=== PATIENT | male | born 2000 | race Caucasian/White ===

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

== ENCOUNTER 2022-09-02 20:10 | Inpatient (IN) | payer MEDICAID, OTHER ==
--- NOTE | 2022-09-02 21:11 | ED ---
Psych HPI - General Chief Complaint: Psychiatric Symptoms Stated Complaint: Suicidal Time Seen by Provider: 09/02/22 20:53 Source: patient, RN notes reviewed Mode of arrival: ambulatory - History of Present Illness Initial Comments: Patient is a 22-year-old male presenting to the emergency room for depressed mood with suicidal thoughts. He reports that he has had significant depression since his grandfather in March of last year with worsening low mood recently. He denies any specific details to suicidal plan but does report he has considered jumping off "something." He has never been evaluated from a psychiatric standpoint in the past regarding depression and is not prescribed any medication for mental health at this time. He does admit to smoking THC regularly. He denies any other complaints not directly related to low mood including any chest pain, shortness breath, abdominal pain, nausea, vomiting, fevers or chills. He has no significant past medical history. - Related Data Home Medications Medication Instructions Recorded Confirmed No Known Home Medications 09/02/22 09/03/22 Allergies Allergy/AdvReac Type Severity Reaction Status Date / Time No Known Allergies Allergy Verified 09/03/22 02:19 Review of Systems ROS Statement: Those systems with pertinent positive or pertinent negative responses have been documented in the HPI. ROS Other: All systems not noted in ROS Statement are negative. Past Medical History Past Medical History: Asthma, Musculoskeletal Disorder Additional Past Medical History / Comment(s): last Tuesday injury to right 4th & 5th fingers-currently splinted History of Any Multi-Drug Resistant Organisms: None Reported Past Surgical History: Appendectomy Past Anesthesia/Blood Transfusion Reactions: No Reported Reaction Past Psychological History: ADD/ADHD Smoking Status: Current every day smoker Past Alcohol Use History: Occasional Past Drug Use History: Marijuana - Past Family History Mother Additional Family Medical History / Comment(s): NONE Father Additional Family Medical History / Comment(s): NONE General Exam - General Exam Comments Initial Comments: GENERAL: No acute distress, well developed, well nourished. HEENT: Normocephalic, atraumatic. Pupils equal, round, reactive to light. Moist mucous membranes. LUNGS: No respiratory distress. Clear to auscultation, no adventitious sounds, no use of accessory muscles. HEART: Regular rate and rhythm without murmur, rub, or gallop. ABDOMEN: Normal bowel sounds. Soft, non-tender, non-distended. BACK: Normal inspection. EXTREMITIES: No edema. No tenderness. Moves all extremities. NEUROLOGIC: Alert & oriented x 3. CN II-XII grossly intact. PSYCHIATRIC: Flat affect and behavior. DERMATOLOGIC: Visualized skin intact, without rashes or lesions noted. Limitations: no limitations Course Vital Signs 09/02/22 20:44 Temperature 98.3 F Pulse Rate 71 Respiratory 16 Rate Blood Pressure 134/76 O2 Sat by Pulse 98 Oximetry Medical Decision Making - Medical Decision Making Was pt. sent in by a medical professional or institution (, PA, DIGGING MACHINE OPERATOR, urgent care, hospital, or prison...) When possible be specific @ -No Did you speak to anyone other than the patient for history (EMS, parent, family, police, friend...)? What history was obtained from this source @ -Yes, mother at bedside obtain family history regarding depression/mental health. Did you review nursing and triage notes (agree or disagree)? Why? @ -I reviewed and agree with nursing and triage notes Were old charts reviewed (outside hosp., previous admission, EMS record, old EKG, old radiological studies, urgent care reports/EKG's, prison records)? Report findings @ -No old charts were reviewed Differential Diagnosis (chest pain, altered mental status, abdominal pain women, abdominal pain men, vaginal bleeding, weakness, fever, dyspnea, syncope, headache, dizziness, GI bleed, back pain, seizure, CVA, palpatations, mental health, musculoskeletal)? @ -Differential Mental Health Depression, anxiety, bipolar, psychosis, schizophrenia, borderline personality, situational depression, adjustment disorder, behavioral disorder, brain tumor, malingering, substance abuse, encephalopathy, medication reaction, dementia, hypothyroidism, degenerative neurologic disorder, lupus.... This is not meant to be all-inclusive list EKG interpreted by me (3pts min.). @ -None done X-rays interpreted by me (1pt min.). @ -None done CT interpreted by me (1pt min.). @ -None done U/S interpreted by me (1pt. min.). @ -None done What testing was considered but not performed or refused? (CT, X-rays, U/S, labs)? Why? @ -None What meds were considered but not given or refused? Why? @ -None Did you discuss the management of the patient with other professionals (professionals i.e. , PA, DIGGING MACHINE OPERATOR, lab, RT, psych nurse, social service manager, blend technician, teacher, correctional probation officer, outsole caser)? Give summary @ -No Was smoking cessation discussed for >3mins.? @ -No Was critical care preformed (if so, how long)? @ -No Were there social determinants of health that impacted care today? How? (Homelessness, low income, unemployed, alcoholism, drug addiction, tra nsportation, low edu. Level, literacy, decrease access to med. care, shelter, rehab)? @ -No Was there de-escalation of care discussed even if they declined (Discuss DNR or withdrawal of care, Hospice)? DNR status @ -No What co-morbidities impacted this encounter? (DM, HTN, Smoking, COPD, CAD, Cancer, CVA, ARF, Chemo, Hep., AIDS, mental health diagnosis, sleep apnea, morbid obesity)? @ -None Was patient admitted / discharged? Hospital course, mention meds given and route, prescriptions, significant lab abnormalities, going to OR and other pertinent info. @ -22-year-old male presenting to the emergency room with complaints of low mood with suicidal thoughts and headache plan for suicide. No auditory or visual hallucinations no homicidal ideation. Not currently following with psychiatry and has not been treated in the past depression. No other complaints or concerns. Alcohol level 0.00. Will cleared from a medical standpoint for psychiatric evaluation. Patient placed in psychiatric down, sharps and cords removed, will maintain safety. Psychiatric evaluation completed. Patient has been recommended for admission to psychiatric unit here at our facility. Will obtain COVID testing per protocol. No indication for any other testing. Will continue to maintain safety while waiting Covid results prior to discharge from the emergency room for admission on psychiatric unit. Will discharge in stable condition for admission to psychiatric inpatient services on for depression with suicidal ideation and plan. Undiagnosed new problem with uncertain prognosis? @ -No Drug Therapy requiring intensive monitoring for toxicity (Heparin, Nitro, Insulin, Cardizem)? @ -No Were any procedures done? @ -No Diagnosis/symptom? @ -Depression with suicidal thoughts Acute, or Chronic, or Acute on Chronic? @ -Acute on chronic Uncomplicated (without systemic symptoms) or Complicated (systemic symptoms)? @ -Complicated Side effects of treatment? @ -No Exacerbation, Progression, or Severe Exacerbation? @ -No Poses a threat to life or bodily function? How? (Chest pain, [place], [place], pneumonia, PE, COPD, DKA, ARF, appy, cholecystitis, CVA, Diverticulitis, Homicidal, Suicidal, threat to staff... and all critical care pts) @ -Yes, suicidal with plan. Case discussed with Dr. Lazo. - Lab Data Lab Results 09/03/22 Range/Units 01:00 Coronavirus (PCR) Not Detected (Not Detectd) Disposition Clinical Impression: Depression, Suicidal ideation Disposition: TRANSFER TO PSYCH HOSP/UNIT Condition: Stable Is patient prescribed a controlled substance at d/c from ED?: No Time of Disposition: 01:25
[2022-09-03] MEDS ORDERED: HALOPERIDOL LACTATE 5 MG/ML 1 ML VIAL IM PRN (02:02)
[2022-09-03] MEDS ORDERED: LORazepam 1 MG TAB PO PRN (02:02)
[2022-09-03] MEDS ORDERED: LORazepam 2 MG/ML INJ IM PRN (02:02)
[2022-09-03] MEDS ORDERED: MAG HYDROX/AL HYDROX/SIMETH 30 ML CUP PO PRN (02:02)
[2022-09-03] MEDS ORDERED: haloperidoL 5 MG TAB PO PRN (02:02)
[2022-09-03] MEDS ORDERED: IBUPROFEN 600 MG TAB PO PRN (02:02)
[2022-09-03] MEDS ORDERED: ACETAMINOPHEN TAB 325 MG TAB PO PRN (02:02)
[2022-09-03] MEDS ORDERED: NICOTINE 14MG/24HR PATCH TRANSDERM SCH (09:00)
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
[2022-09-03 11:08] LABS: Basophils % (A) 0 %; Eosinophils # (A) 0.2 k/uL (0-0.7); Eosinophils % (A) 3 %; HCT 45.6 % (39.0-53.0); HGB 15.6 gm/dL (13.0-17.5); Lymphocytes % (A) 33 %; MCH 30.6 pg (25.0-35.0); MCHC 34.2 g/dL (31.0-37.0); MCV 89.3 fL (80.0-100.0); Mean Platelet Volume 7.4; Monocytes # (A) 0.5 k/uL (0-1.0); Monocytes % (A) 8 %; Neutrophils # (A) 3.3 k/uL (1.3-7.7); Neutrophils % (A) 55 %; Platelet Count 237 k/uL (150-450); RDW 12.4 % (11.5-15.5); WBC 6.1 k/uL (3.8-10.6)
[2022-09-03 11:37] LABS: ALT 13 U/L (4-49); AST 28 U/L (17-59); African American GFR (CKD) >90 (>60 ml/min/1.73 sqM); Albumin 4.4 g/dL (3.5-5.0); Alkaline Phosphatase 72 U/L (38-126); Anion Gap 11 mmol/L; Bilirubin, Delta 0.3 mg/dL (0.0-0.2); Bilirubin,Unconjugated 0.8 mg/dL (0.0-1.1); Blood Urea Nitrogen 16 mg/dL (9-20); Calcium 9.6 mg/dL (8.4-10.2); Carbon Dioxide 25 mmol/L (22-30); Chloride 102 mmol/L (98-107); Glucose 88 mg/dL (74-99); Non-African American GFR(CKD) >90 (>60 ml/min/1.73 sqM); Potassium 4.4 mmol/L (3.5-5.1); Sodium 138 mmol/L (137-145); Total Bilirubin 1.1 mg/dL (0.2-1.3); Total Protein 7.3 g/dL (6.3-8.2)
[2022-09-03] MEDS: NICOTINE GUM (POLACRILEX) 2 MG GUM BUCCAL PRN (20:48)
[2022-09-03 21:46] LABS: Chol/HDL Ratio 4.62 Ratio; VLDL Calculation 18.12 mg/dL (5.00-40.00)
[2022-09-03] MEDS: OLANZapine 2.5 MG TAB PO SCH (21:59)
[2022-09-04 11:03] VITALS: RESP 16
[2022-09-04] MEDS: NICOTINE GUM (POLACRILEX) 2 MG GUM BUCCAL PRN ×2 (15:10→20:46)
[2022-09-04] MEDS: OLANZapine 2.5 MG TAB PO SCH (21:34)
--- NOTE | 2022-09-05 03:23 | P.PN ---
Progress Note - Text Progress Note Date: 09/05/22 patient refused medical evaluation
--- NOTE | 2022-09-05 16:39 | P.CONS ---
History of Present Illness - Reason for Consult Consult date: 09/05/22 - History of Present Illness Patient is a 22 year old M with a past medical history asthma, nicotine abuse, marijuana use. He is currently admitted to the mental health unit and we have been consulted for medical management and medical H&P for this admission. Patient seen and fully evaluated on mental health unit. Patient reports no complaints. He denies any headache, lower extremity edema, nausea or vomiting, fever or chills, cough, chest pain, shortness breath, palpitations, changes in urination or bowel habits. No changes in appetite or weight. He denies any dizziness, numbness/weakness/tingling of the extremities. Pertinent positives and negatives as discussed in HPI, a complete review of systems was performed and all other systems are negative. General: non toxic, no distress, appears at stated age Derm: warm, dry Head: atraumatic, normocephalic, symmetric Eyes: EOMI, no lid lag, anicteric sclera Mouth: no lip lesion, mucus membranes moist Cardiovascular: S1S2 reg, no murmur Lungs: CTA bilateral, no rhonchi, no rales , no accessory muscle use Ext: no gross muscle atrophy, no edema, no contractures Neuro: CN II-XI grossly intact, no focal neuro deficits Psych: Alert, oriented, appropriate affect Asthma Nicotine abuse Marijuana use Based on my assessment of this patient, this patient meets a moderate complexity level of care. Patient has a chronic diagnosis of Polysubstance abuse, Asthma, Hepatitis C and Nicotine abuse. Asthma - Albuterol inhaler as needed for SOB/wheezing. Nicotine abuse - Nicotine patch. Marijuana use - Patient encouraged to quit. I have reviewed the following senior management consultant notes: None. I have reviewed the results of the following tests: CBC unremarkable. CMP shows delta bilirubin of 0.3. Lipid panel shows HDL 35.9. TSH 1.77. COVD 19 negative. I have ordered the following tests: UDS pending. Urinalysis pending. I have discussed the care of this patient with the following independent historian: None. I have independently interpreted the following test below: None. I have discussed the management of this patient with the following physician: None. Past Medical History Past Medical History: Asthma, Musculoskeletal Disorder Additional Past Medical History / Comment(s): last Tuesday injury to right 4th & 5th fingers-currently splinted History of Any Multi-Drug Resistant Organisms: None Reported Past Surgical History: Appendectomy Past Anesthesia/Blood Transfusion Reactions: No Reported Reaction Smoking Status: Current every day smoker - Past Family History Mother Additional Family Medical History / Comment(s): NONE Father Additional Family Medical History / Comment(s): NONE Medications and Allergies Home Medications Medication Instructions Recorded Confirmed Type No Known Home Medications 09/02/22 09/03/22 History Allergies Allergy/AdvReac Type Severity Reaction Status Date / Time No Known Allergies Allergy Verified 09/03/22 02:19 Physical Exam Vitals: Vital Signs Temp Pulse Resp BP Pulse Ox 09/04/22 23:47 97.7 F 63 16 118/69 99 Intake and Output 09/05/22 09/05/22 09/05/22 06:59 14:59 22:59 Other: Weight 64.7 kg Results CBC & Chem 7: 09/03/22 10:33 09/03/22 10:33
[2022-09-05] MEDS: NICOTINE GUM (POLACRILEX) 2 MG GUM BUCCAL PRN (19:58)
[2022-09-05] MEDS: OLANZapine 2.5 MG TAB PO SCH (20:38)
--- NOTE | 2022-09-05 22:59 | P.PN ---
Progress Note - Text Progress Note Date: 09/04/22 Interval history: Patient was seen and was directable and agreeable to speak with auto service writer. He reports good mood, sleep, appetite. He is calm, pleasant, cooperative. He is recorded as sleeping 4+ hours last night. At this time patient denies any suicidal or homicidal ideation, intent or plan. Denies any auditory or visual hallucinations. Patient denies any side effects from the medications and has been compliant with meds. He has attended most but not all groups so far today. Mental status exam: General Appearance: Patient appears to be stated age is alert, directable, and cooperative. Behavior: No agitated behavior. Patient is calm and directable Speech: Patient's speech is fluent and non-pressured. Mood/Affect: Mood is improving mildly, affect is congruent and constricted. Suicidality/Homicidality: Patient denies having any suicidal or homicidal ideation intent or plan. Perceptions: Patient denies any auditory or visual hallucinations. Though content/process: There is no evidence of any delusional thought content and thought process is linear and goal-directed. Memory and concentration: AOX3, grossly intact for the purposes of this session Judgment and insight: improving mildly Assessment/Plan: Continue with current diagnosis. Patient continues to meet criteria for inpatient psychiatric admission for symptom stabilization and safety. Patient will be maintained on current psychotropic medication regimen. Monitor for medication compliance and for any psychotropic medication side effects. Will continue to monitor ongoing response to treatment. Encouraged participation in milieu.
--- NOTE | 2022-09-05 23:01 | P.PN ---
Progress Note - Text Progress Note Date: 09/05/22 Interval history: Patient was seen and was directable and agreeable to speak with headline writer. He reports mood is "Pretty good". He is calm, pleasant, cooperative. He is recorded as sleeping 5+ hours last night. At this time patient denies any suicidal or homicidal ideation, intent or plan. Denies any auditory or visual hallucinations. Patient denies any side effects from the medications and has been compliant with meds. He has attended most but not all groups so far today. Mental status exam: General Appearance: Patient appears to be stated age is alert, directable, and cooperative. Behavior: No agitated behavior. Patient is calm and directable Speech: Patient's speech is fluent and non-pressured. Mood/Affect: Mood is improving mildly, affect is congruent and constricted. Suicidality/Homicidality: Patient denies having any suicidal or homicidal ideation intent or plan. Perceptions: Patient denies any auditory or visual hallucinations. Though content/process: There is no evidence of any delusional thought content and thought process is linear and goal-directed. Memory and concentration: AOX3, grossly intact for the purposes of this session Judgment and insight: improving mildly Assessment/Plan: Continue with current diagnosis. Patient continues to meet criteria for inpatient psychiatric admission for symptom stabilization and safety. Patient will be maintained on current psychotropic medication regimen. Monitor for medication compliance and for any psychotropic medication side effects. Will continue to monitor ongoing response to treatment. Encouraged participation in milieu.
[2022-09-06 06:49] VITALS: BP 105/60; PULSE 58; TEMP 97.6
[2022-09-06] MEDS: NICOTINE GUM (POLACRILEX) 2 MG GUM BUCCAL PRN ×2 (08:16→12:26)
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
== END 2022-09-06 12:48 | disposition home or self-care (01) | DRG 754 ==
LOC: EC 20:10 → 3MHU 09-03 01:46
PROVIDERS: ADMIT Psychiatry & Neurology Psychiatry; ATTEND Psychiatry & Neurology Psychiatry
DX: F43.21 Adjustment disorder with depressed mood (principal); Z20.822 Contact with and (suspected) exposure to COVID-19; R29.91 Unspecified symptoms and signs involving the musculoskeletal system; R45.851 Suicidal ideations; F12.20 Cannabis dependence, uncomplicated; F17.210 Nicotine dependence, cigarettes, uncomplicated; F90.9 Attention-deficit hyperactivity disorder, unspecified type; J45.909 Unspecified asthma, uncomplicated; F60.89 Other specific personality disorders; Z71.6 Tobacco abuse counseling; Z71.51 Drug abuse counseling and surveillance of drug abuser
CPT/HCPCS: 80053; 80061; 82075; 82248; 83036; 84443; 85025; 87635; 99285